=== PATIENT | female | born 2000 | race Caucasian/White ===

== ENCOUNTER 2019-10-28 17:21 | Emergency (ER) | payer SELFPAY ==
[~2019-10-28] VITALS: Ht 170.2 cm; Wt 100.0 kg
[2019-10-28 17:31] VITALS: BP 108/72; TEMP 97.2
[2019-10-28 18:51] VITALS: PULSE 60
== END 2019-10-28 18:51 | disposition home or self-care (01) ==
LOC: COL.ER 17:21
DX: S51.011A Laceration without foreign body of right elbow, initial encounter (principal); Z23 Encounter for immunization; W22.8XXA Striking against or struck by other objects, initial encounter; Y92.59 Other trade areas as the place of occurrence of the external cause

== ENCOUNTER → 2019-11-07 | Outpatient (CLI) | payer SELFPAY ==
[2019-11-07 14:10] VITALS: BP 108/66; PULSE 62; TEMP 97.8
== END ==
LOC: COL.ER 13:56
DX: Z48.02 Encounter for removal of sutures (principal)